=== PATIENT | male | born 2000 | race Hispanic/Latino ===

== ENCOUNTER → 2023-02-02 | Emergency (ER) | payer OTHER, SELFPAY ==
--- NOTE | 2023-02-03 00:13 | EDPHYS ---
Physician Documentation [facility] Name: Josh Nicholson Age: 22 yrs Sex: Male : 2000 Arrival Date: 02/02/2023 Time: 22:14 Bed 10 Private MD: YA Physician Miller Cruz HPI: 02/03 00:10 This 22 yrs old Male presents to ER via Ambulatory with complaints of Ear Pain.kb 00:10 Pt is a 22 year old male with no medical history who presents for bilateral ear pain, kb sore throat and headache that started this morning. . Historical: - Allergies: 02/02 22:54 No Known Allergies; km8 - Home Meds: 22:54 None [Active]; km8 - PMHx: 22:54 None; km8 - PSHx: 22:54 None; km8 - Immunization history:: Client reports receiving the 2nd dose of the Covid vaccine, Flu vaccine is not up to date. - Social history:: Smoking status: Patient reports the use of cigarette tobacco products, denies chronic smoking, but will smoke occasionally, Patient/guardian denies using alcohol, street drugs. ROS: 02/03 00:10 Constitutional: Negative for fever, chills, and weight loss, kb ENT: Positive for ear pain, sore throat, Neuro: Positive for headache, All other systems are negative, Exam: 00:10 Constitutional: This is a well developed, well nourished patient who is awake, alert, kb and in no acute distress. Head/Face: Normocephalic, atraumatic. Cardiovascular: Regular rate Respiratory: Respirations even and unlabored. No increased work of breathing. Talking in full sentences Skin: Warm, dry with normal turgor. Normal color. MS/ Extremity: Pulses equal, no cyanosis. Neurovascular intact. Full, normal range of motion. Neuro: Awake and alert, GCS 15, oriented to person, place, time, and situation. Moves all extremities. Normal gait. 00:10 ENT: External ear(s): are unremarkable, Ear canal(s): are normal, TM's: are normal, Posterior pharynx: Airway: normal, no evidence of obstruction, Tonsils: bilaterally enlarged, with erythema, with exudate, Uvula: normal, midline, swelling, that is mild, erythema, that is moderate, exudate, that is mild, Vital Signs: 02/02 22:53 BP 145 / 85; Pulse 100; Resp 18; Temp 98.3(IR); Pulse Ox 99% on R/A; Weight 104.[address] [facility] (R); Height 5 ft. 6 in. (R); Pain 8/10; 22:53 Body Mass Index 37.12 (104.33 kg, 167.64 cm) [facility] 22:53 Pain Scale: Adult 8 MDM: 22:30 Patient medically screened. kb 23:54 Differential diagnosis: otitis media, otitis externa, ruptured TM, foreign body, acute kb otalgia, flu, covid, strep. Data reviewed: vital signs, nurses notes. 02/03 00:12 Counseling: I had a detailed discussion with the patient and/or guardian regarding the kb historical points, exam findings, and any diagnostic results supporting the discharge/admit diagnosis, lab results, the need for outpatient follow up, a family practitioner, to return to the emergency department if symptoms worsen or persist or if there are any questions or concerns that arise at home. 02/02 22:44 Order name: Strep; Complete Time: 23:53 kb 02/02 22:44 Order name: Flu; Complete Time: 23:53 kb 02/02 22:44 Order name: COVID-19 SARS RT PCR; Complete Time: 00:03 kb 02/02 23:54 Order name: Throat Culture EDMS Administered Medications: No medications were administered Disposition Summary: 02/03/23 00:13 Discharge Ordered Notes: Location: Home kb Condition: Stable kb Diagnosis - Acute tonsillitis, unspecified kb Followup: kb - With: Emergency Department - When: As needed - Reason: Worsening of condition Followup: kb - With: Private Physician - When: 2 - 3 days - Reason: Recheck today's complaints, Continuance of care, Re-evaluation by your physician Discharge Instructions: - Discharge Summary Sheet kb - Tonsillitis, [id number] kb Forms: - Medication Reconciliation Form kb - Thank You Letter kb - Antibiotic Education kb - Prescription Opioid Use kb - Patient Portal Instructions kb - Leadership Thank You Letter kb Prescriptions: - Augmentin 875-125 mg Oral Tablet - take 1 tablet ORAL route every 12 hours for 10 days; 20 tablet; Refills: 0, kb Product Selection Permitted Signatures: Dispatcher [employer] Marii Quiñones, [employer] COACH-C [employer] COACH-Ckb Macie Archuleta, RN RN km8
--- NOTE | 2023-02-03 00:13 | ER ---
Nurse's Notes [facility] Name: Josh Nicholson Age: 22 yrs Sex: Male : 2000 Arrival Date: 02/02/2023 Time: 22:14 Bed 10 Private MD: Diagnosis: Acute tonsillitis, unspecified Presentation: 02/02 22:53 Chief complaint: Patient states: sore throat starting this morning that spread to km8 bilateral ear pain and GOMEZ; denies fever at home. Coronavirus screen: Client denies travel out of the [place] in the last 14 days. Ebola Screen: No symptoms or risks identified at this time. Initial Sepsis Screen: Does the patient meet any 2 criteria? HR > 90 bpm. No. Patient's initial sepsis screen is negative. Does the patient have a suspected source of infection? No. Patient's initial sepsis screen is negative. Risk Assessment: Do you want to hurt yourself or someone else? Patient reports no desire to harm self or others. Onset of symptoms was February 02, 2023. 22:53 Method Of Arrival: Ambulatory [facility] 22:53 Acuity: EVER 4 km8 Triage Assessment: 22:54 General: Appears uncomfortable, Behavior is calm, cooperative, appropriate for age. km8 Pain: Complains of pain in Head, bilateral ears, and throat Pain currently is 8 out of 10 on a pain scale. EENT: Reports nasal congestion. Neuro: Level of Consciousness is awake, alert, obeys commands, Oriented to person, place, time, situation. Cardiovascular: Denies chest pain, shortness of breath, Capillary refill < 3 seconds Patient's skin is warm and dry. Respiratory: Airway is patent Respiratory effort is even, unlabored, Respiratory pattern is regular, symmetrical. GI: No signs and/or symptoms were reported involving the gastrointestinal system. : No signs and/or symptoms were reported regarding the genitourinary system. Derm: No signs and/or symptoms reported regarding the dermatologic system. Skin is intact, Skin is dry, Skin is pink, warm \T\ dry. normal, Skin temperature is warm. Musculoskeletal: No signs and/or symptoms reported regarding the musculoskeletal system. Range of motion: intact in all extremities. Historical: - Allergies: 22:54 No Known Allergies; km8 - Home Meds: 22:54 None [Active]; km8 - PMHx: 22:54 None; km8 - PSHx: 22:54 None; km8 - Immunization history:: Client reports receiving the 2nd dose of the Covid vaccine, Flu vaccine is not up to date. - Social history:: Smoking status: Patient reports the use of cigarette tobacco products, denies chronic smoking, but will smoke occasionally, Patient/guardian denies using alcohol, street drugs. Screenin/30 00:00 [facility] ED Fall Risk Assessment (Adult) History of falling in the last 3 months, pf1 including since admission No falls in past 3 months (0 pts) Confusion or Disorientation No (0 pts) Intoxicated or Sedated No (0 pts) Impaired Gait No (0 pts) Mobility Assist Device Used No (0 pt) Altered Elimination No (0 pt) Score/Fall Risk Level 0 - 2 = Low Risk Oriented to surroundings, Maintained a safe environment, Educated pt \T\ family on fall prevention, incl call for assistance when getting out of bed, Assessed \T\ reinforced patient's understanding of fall precautions, Provided non-skid footwear, Hourly rounding (assess needs \T\ fall precautionary measures) done, Used ambulatory aids as needed (educated on \T\ assisted with), Used gait belt as appropriate. 00:00 Abuse screen: Denies threats or abuse. Nutritional screening: No deficits noted. pf1 Tuberculosis screening: No symptoms or risk factors identified. Assessment: 02/02 23:47 General: Appears in no apparent distress. comfortable, well groomed, well developed, pf1 Behavior is calm, cooperative, appropriate for age, quiet. 23:47 Pain: Complains of pain in sore throat,headache with bilateral ear pain. Neuro: Level pf1 of Consciousness is awake, alert, obeys commands, Oriented to person, place, time, situation, Reports headache. Cardiovascular: No deficits noted. Capillary refill < 3 seconds Patient's skin is warm and dry. Respiratory: No deficits noted. Airway is patent Respiratory effort is even, unlabored, Respiratory pattern is regular, symmetrical. GI: No deficits noted. No signs and/or symptoms were reported involving the gastrointestinal system. : No deficits noted. No signs and/or symptoms were reported regarding the genitourinary system. EENT: Reports pain in throat and bilateral ear pain. Derm: No deficits noted. No signs and/or symptoms reported regarding the dermatologic system. Vital Signs: 22:53 BP 145 / 85; Pulse 100; Resp 18; Temp 98.3(IR); Pulse Ox 99% on R/A; Weight 104.33 kg km8 (R); Height 5 ft. 6 in. (R); Pain 8/10; 22:53 Body Mass Index 37.12 (104.33 kg, 167.64 cm) km8 22:53 Pain Scale: Adult [facility] ED Course: 22:16 Patient arrived in ED. ag3 22:30 Marii Dinh FNP-C is [facility]. kb 22:30 Miller Cruz MD is Attending Physician. kb 22:54 Triage completed. km8 22:54 Arm band placed on right wrist. km8 22:59 COVID-19 SARS RT PCR Sent. km8 22:59 Flu Sent. km8 22:59 Strep Sent. km8 12 00:00 Patient has correct armband on for positive identification. Call light in reach. pf1 00:29 Patient did not have IV access during this emergency room visit. pf1 00:30 Provided Education on: prescription . pf1 00:30 No provider procedures requiring assistance completed. pf1 Administered Medications: No medications were administered Medication: 00:29 VIS not applicable for this client. pf1 Outcome: 00:13 Discharge ordered by . kb 00:29 Discharged to home ambulatory, with family, pf1 00:29 Condition: stable 00:29 Discharge instructions given to patient, family, Instructed on discharge instructions, follow up and referral plans. Demonstrated understanding of instructions, follow-up care, medications, Prescriptions given X 1, 00:31 Patient left the ED. pf1 Signatures: Marii Dinh FNP-C FNP-Ckb Gomez, Alice 3 Noelle Brewer, RN RN pf1 Macie Archuleta, DWAYNE RN 8
[2023-02-03 03:28] VITALS: BP 145/85; TEMP 98.3; O2SAT 99
== END ==
LOC: ER 22:14
DX: J03.90 Acute tonsillitis, unspecified (principal); H92.03 Otalgia, bilateral
CPT/HCPCS: 87070; 87081; 87635; 87804; 99283